=== PATIENT | male | born 1985 | race Caucasian/White ===

== ENCOUNTER 2021-04-04 12:59 | Emergency (ER) | payer OTHER ==
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
[2021-04-04] MEDS ORDERED: KETOROLAC 30 MG/ML INJ ONE (15:22)
[2021-04-04 15:55] VITALS: BP 151/91; TEMP 97.2; O2SAT 100
== END 2021-04-04 15:48 | disposition home or self-care (01) ==
LOC: ER 12:59
PROC: 2W3JX1Z Immobilization of Right Finger using Splint (ICD-10-PCS; principal; 2021-04-04)
DX: S62.610A Displaced fracture of proximal phalanx of right index finger, initial encounter for closed fracture (principal); S02.2XXA Fracture of nasal bones, initial encounter for closed fracture; Y04.2XXA Assault by strike against or bumped into by another person, initial encounter; Y92.149 Unspecified place in prison as the place of occurrence of the external cause; Z88.0 Allergy status to penicillin; I10 Essential (primary) hypertension; F17.210 Nicotine dependence, cigarettes, uncomplicated
CPT/HCPCS: 70450; 70486; 72125; 76377; 96372; 99284